=== PATIENT | male | born 1975 | race Caucasian/White ===

== ENCOUNTER → 2016-09-19 | Outpatient (REF) | payer OTHER ==
[2016-09-19 11:54] LABS: CRYSTALS, BODY FLUID NONE SEEN (NONE SEEN)
== END | disposition home or self-care (01) ==
LOC: M SFHCPLAZ 11:30
PROVIDERS: ATTEND Family Medicine
DX: M25.40 Effusion, unspecified joint (principal)

== ENCOUNTER → 2016-09-20 | Outpatient (CLI) | payer OTHER | END | disposition home or self-care (01) | LOC: M SMT 14:23 | PROVIDERS: ATTEND Family Medicine | DX: Z53.8 Procedure and treatment not carried out for other reasons (principal); S92.255 Nondisplaced fracture of navicular [scaphoid] of left foot; M25.40 Effusion, unspecified joint; X58.XXXA Exposure to other specified factors, initial encounter; Y92.9 Unspecified place or not applicable; Y93.9 Activity, unspecified; Y99.9 Unspecified external cause status ==

== ENCOUNTER → 2016-09-21 | Outpatient (CLI) | payer OTHER ==
--- NOTE | 2016-09-21 15:30 | REP ---
Left foot: two views. History: Fracture of the left foot. Follow-up. Comparison study June 06, 2016. 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 An old accessory ossicle is seen at the distal talus at the talonavicular articulation as well. Plantar heel spurring is seen. There is some degree of pes planus. No acute bony abnormality is seen. Signed by Rudy Nevarez MD 09/21/2016 03:34 P
--- NOTE | 2016-09-21 15:31 | REP ---
Right ankle series: Two views. History: Joint effusion. Swelling. Findings: Two views of the right ankle demonstrate anterior swelling and plantar calcaneal spurring. Ankle mortise is intact. Lateral soft tissue swelling is seen. Impression: Anterolateral swelling. No fracture or other acute bony abnormality. Plantar heel spur. Signed by Rudy Nevarez MD 09/21/2016 03:34 P
== END | disposition home or self-care (01) ==
LOC: M SMT 14:46
PROVIDERS: ATTEND Thoracic Surgery (Cardiothoracic Vascular Surgery)
DX: S92.251G Displaced fracture of navicular [scaphoid] of right foot, subsequent encounter for fracture with delayed healing (principal); M25.471 Effusion, right ankle; M77.31 Calcaneal spur, right foot; X58.XXXD Exposure to other specified factors, subsequent encounter; Y92.9 Unspecified place or not applicable; Y93.9 Activity, unspecified; Y99.9 Unspecified external cause status

== ENCOUNTER → 2016-09-26 | Outpatient (REF) | payer OTHER ==
[2016-09-26 15:52] LABS: ALBUMIN 4.4 GM/DL (3.2-5.2); ALBUMIN/GLOBULIN RATIO 1.13 (1.00-1.93); ALKALINE PHOSPHATASE 104 U/L (45-117); ALT/SGPT 60 U/L (12-78); AST/SGOT 25 U/L (15-37); BILIRUBIN,DIRECT 0.2 MG/DL (0.0-0.2); BILIRUBIN,TOTAL 0.4 MG/DL (0.2-1.0); TOTAL PROTEIN 8.3 GM/DL (6.4-8.2)
== END | disposition home or self-care (01) ==
LOC: M SFHCPLAZ 12:36
PROVIDERS: ATTEND Family Medicine
DX: M25.40 Effusion, unspecified joint (principal); R74.0 Nonspecific elevation of levels of transaminase and lactic acid dehydrogenase [LDH]; R00.0 Tachycardia, unspecified

== ENCOUNTER → 2016-12-21 | Outpatient (CLI) | payer OTHER ==
--- NOTE | 2016-12-21 15:06 | REP ---
Chest x-ray: Two views. History: Shortness of breath. . Comparison study: No comparison . Findings: The lungs are well inflated and free of infiltrate. The pleural angles are sharp. The heart size is normal. Pulmonary vasculature is not increased. No significant bony abnormality is seen. Impression: Negative chest x-ray. Signed by Rudy Nevarez MD 12/21/2016 02:58 P
== END ==
LOC: M WUC 12:33
PROVIDERS: ATTEND Internal Medicine Cardiovascular Disease
DX: R06.02 Shortness of breath (principal)

== ENCOUNTER → 2018-01-07 | Outpatient (REF) | payer BC ==
[2018-01-07 16:04] LABS: ESTIMATED AVERAGE GLUCOSE 105 MG/DL (60-110); HEMOGLOBIN A1c 5.3 %
== END ==
LOC: M SFHCPLAZ 13:35
DX: E66.9 Obesity, unspecified (principal)
CPT/HCPCS: 83036

== ENCOUNTER → 2018-02-07 | Outpatient (CLI) | payer BC | LOC: M WUC 12:16 | DX: S83.422A Sprain of lateral collateral ligament of left knee, initial encounter (principal); X58.XXXA Exposure to other specified factors, initial encounter; Y92.9 Unspecified place or not applicable | CPT/HCPCS: 73564 ==

== ENCOUNTER → 2018-07-21 | Outpatient (REF) | payer BC ==
[2018-07-21 13:47] LABS: ANION GAP 12 MEQ/L (8-16); BLOOD UREA NITROGEN 12 MG/DL (7-18); CALCIUM LEVEL 9.3 MG/DL (8.5-10.1); CARBON DIOXIDE LEVEL 30 MEQ/L (21-32); CHLORIDE LEVEL 97 MEQ/L (98-107); CREATININE FOR GFR 0.89 MG/DL (0.70-1.30); GLOMERULAR FILTRATION RATE > 60.0 (>60); GLUCOSE, FASTING 109 MG/DL (70-100); POTASSIUM SERUM 4.2 MEQ/L (3.5-5.1); SODIUM LEVEL 139 MEQ/L (136-145); URIC ACID 8.9 MG/DL (3.5-7.2)
== END ==
LOC: M SFHCPLAZ 11:41
DX: M79.671 Pain in right foot (principal)
CPT/HCPCS: 84550

== ENCOUNTER → 2018-07-21 | Outpatient (CLI) | payer BC | LOC: M SMT 12:00 | DX: M79.671 Pain in right foot (principal) | CPT/HCPCS: 73630 ==

== ENCOUNTER → 2021-03-15 | Outpatient (CLI) | payer BC ==
--- NOTE | 2021-03-20 15:43 | SLEEPHOME ---
DIAGNOSTIC HOME SLEEP STUDY DATE: 03/15/2021 ORDERED BY: KANDACE Montoya Diagnostic home sleep testing was performed due to concern for the obstructive sleep apnea syndrome in this patient with a history of snoring. For testing, a nocturnal T3 respiratory monitoring device was used. Continuous record was made of pulse, oxygen saturation, air flow, chest and abdominal strain, and body position. 9 hours and 59 minutes of data were reviewed. There were 6 hours and 43 minutes marked as time in bed. During the interval marked time in bed, there were 192 respiratory events identified of 10 seconds in duration or greater for a respiratory event index of 28.6. The events were primarily obstructive. Baseline pulse rate 77. Pulse rate range 61 to 103. Baseline saturation was 89%. Saturations fell to 75%. Testing was performed in both the supine and non-supine positions. IMPRESSION: Abnormal home sleep testing, with repetitive respiratory events and oxygen desaturations to 75% with a respiratory event index of 28.6, is consistent with the obstructive sleep apnea syndrome. RECOMMENDATION: The patient should be encouraged to undergo formal sleep evaluation.
== END ==
LOC: M SLEEP HO 10-24 09:56
PROVIDERS: ATTEND Nurse Practitioner Family
DX: R06.83 Snoring (principal)

== ENCOUNTER → 2021-09-30 | Outpatient (CLI) | payer BC | LOC: M SLEEP 20:00 | PROVIDERS: ATTEND Nurse Practitioner Family | DX: G47.33 Obstructive sleep apnea (adult) (pediatric) (principal) ==

== ENCOUNTER → 2021-11-30 | Outpatient (CLI) | payer BC ==
[2021-11-30 16:02] LABS: ALBUMIN 3.8 GM/DL (3.2-5.2); ALT/SGPT 129 U/L (12-78); BILIRUBIN,TOTAL 0.4 MG/DL (0.2-1.0); BLOOD UREA NITROGEN 10 MG/DL (7-18); CARBON DIOXIDE LEVEL 32 MEQ/L (21-32); CHLORIDE LEVEL 107 MEQ/L (98-107); CHOLESTEROL LEVEL 183 MG/DL (<200); CHOLESTEROL RISK RATIO 4.255 (<5); CREATININE FOR GFR 0.84 MG/DL (0.70-1.30); GLOMERULAR FILTRATION RATE > 60.0 (>60); GLUCOSE, FASTING 104 MG/DL (70-100); HDL CHOLESTEROL 43 MG/DL (>40); LDL CHOLESTEROL 111 MG/DL (<100); NON-HDL-C 140 MG/DL; POTASSIUM SERUM 4.1 MEQ/L (3.5-5.1); SODIUM LEVEL 142 MEQ/L (136-145); TOTAL PROTEIN 7.6 GM/DL (6.4-8.2); TRIGLYCERIDES LEVEL 145 MG/DL (<150); URIC ACID 6.2 MG/DL (3.5-7.2)
== END ==
LOC: M PLALAB 12:26
PROVIDERS: ATTEND Nurse Practitioner Family
DX: Z00.00 Encounter for general adult medical examination without abnormal findings (principal)